=== PATIENT | female | born 1985 | race Caucasian/White ===

== ENCOUNTER → 2020-10-22 | Outpatient (CLI) | payer OTHER ==
--- NOTE | 2020-10-23 08:40 | RAD ---
EXAM: Neck sonogram. HISTORY: Lymphadenopathy. TECHNIQUE: Sonographic imaging of the neck at the site of palpable concern within the left submandibu lar region was performed. COMPARISON: None. FINDINGS: There is an 8 mm lymph node within the left neck at the site of palpable concern. This main tains a fatty hilum and normal cortical thickness. No additional lesion is seen. IMPRESSION: 8 mm lymph node with benign morphology within the left neck at the site of palpable sumit rn. This may be physiologic or reactive. Continued clinical follow-up of palpable abnormality is ruth mmended. Repeat imaging can be performed if there is continuing concern. Electronically signed by: Melany Kwong MD (10/23/2020 8:38 AM) [facility]
== END ==
LOC: US 14:42
PROVIDERS: ATTEND Family Medicine Sports Medicine
DX: R59.0 Localized enlarged lymph nodes (principal)
CPT/HCPCS: 76536